=== PATIENT | female | born 1955 | race Hispanic/Latino ===

== ENCOUNTER 2019-08-06 02:09 | Inpatient (IN) | payer SELFPAY ==
[~2019-08-06] VITALS: Ht 157.5 cm; Wt 83.6 kg
[2019-08-06] MEDS ORDERED: ASPIRIN 81MG TAB.CHEW ONE (02:47)
[2019-08-06] MEDS ORDERED: SODIUM CHLORIDE 0.9% 1000ML 1,000 ML IV ONE (02:48)
[2019-08-06 03:02] LABS: BASOPHILS % (AUTO) 0.5 % (0.0-5.0); EOSINOPHILS % (AUTO) 2.6 % (0.0-8.0); HEMATOCRIT 40.4 % (36-48); LYMPHOCYTES % (AUTO) 30.6 % (21.0-51.0); MEAN CORPUSCULAR HEMOGLOBIN 30.5 pg (27.0-33.0); MEAN CORPUSCULAR HGB CONC 32.8 g/dL (32.0-36.0); MONOCYTES % (AUTO) 6.7 % (3.0-13.0); NEUTROPHILS % (AUTO) 59.6 % (40.0-77.0); PLATELET COUNT (AUTO) 214 K/uL (130-400); RED BLOOD CELL COUNT(AUTO) 4.35 MIL/uL (4.00-5.50); RED CELL DISTRIBUTION WIDTH 14.4 % (11.0-15.5); WHITE BLOOD COUNT (AUTO) 6.7 K/uL (4.8-10.8)
[2019-08-06 03:17] LABS: INR 0.93 (0.85-1.15); PARTIAL THROMBOPLASTIN TIME 34.3 SEC (26.3-35.5); PROTHROMBIN TIME 9.8 SEC (9.6-11.6)
[2019-08-06 03:23] LABS: B-TYPE NATRIURETIC PEPTIDE 8 pg/mL (0-100)
[2019-08-06 03:25] LABS: ALBUMIN 3.5 g/dL (3.5-5.0); BILIRUBIN,TOTAL 0.2 mg/dL (0.2-1.0); MAGNESIUM 1.9 mg/dL (1.80-2.40); THYROID STIMULATING HORMONE 2.52 uIU/mL (0.36-3.74); TOTAL PROTEIN, SERUM 7.7 g/dL (6.0-8.3)
[2019-08-06 04:39] LABS: APPEARANCE,URINE Clear (CLEAR); BILIRUBIN,URINE Negative (NEGATIVE); COLOR,URINE Yellow (YELLOW); GLUCOSE, URINE (UA) Negative (NEGATIVE); KETONES,URINE Negative (NEGATIVE); LEUKOCYTE ESTERASE ,URINE Trace (NEGATIVE); NITRATE,URINE Negative (NEGATIVE); OCCULT BLOOD,URINE Trace (NEGATIVE); PH,URINE 5.5 (5.0-8.0); PROTEIN,URINE Negative (NEGATIVE); UROBILINOGEN,URINE 0.2 mg/dL (0.2-1.0)
[2019-08-06 04:50] LABS: BACTERIA,URINE None Seen /HPF (None Seen); RBC,URINE 0-1 /HPF (0-1); SQUAMOUS EPITHELIAL CELL,UR Few /HPF (0-2); WBC,URINE None Seen /HPF (0-1)
[2019-08-06] MEDS ORDERED: MORPHINE SULFATE 2 MG/ML 1ML SYG IV PRN (05:00)
[2019-08-06] MEDS ORDERED: MORPHINE SULFATE 4 MG/1ML SYG IV PRN (05:00)
[2019-08-06] MEDS ORDERED: ACETAMINOPHEN 325 MG TAB PO PRN ×2 (05:00)
[2019-08-06] MEDS ORDERED: ONDANSETRON HCL 4 MG/2 ML VIAL IV PRN (05:00)
[2019-08-06 06:20] LABS: ALBUMIN 3.3 g/dL (3.5-5.0); BILIRUBIN,TOTAL 0.2 mg/dL (0.2-1.0); CREATININE 0.9 mg/dL (0.5-1.5); POTASSIUM 4.1 mmol/L (3.5-5.1); TOTAL PROTEIN, SERUM 7.3 g/dL (6.0-8.3)
[2019-08-06 06:27] LABS: CHOLESTEROL 179 mg/dL (<200); HDL CHOLESTEROL 61 mg/dL (35-85); LDL DIRECT 101 mg/dL (0-99); TRIGLYCERIDES 128 mg/dL (30-200)
[2019-08-06 08:23] VITALS: BP 133/73
[2019-08-06] MEDS: FAMOTIDINE/PF 20 MG/2 ML VIAL IV SCH ×2 (09:26→20:25)
[2019-08-06] MEDS: SODIUM CHLORIDE 0.9% 1000ML 1,000 ML IV SCH ×2 (09:26→23:48)
[2019-08-06] MEDS: METOPROLOL TARTRATE 25 MG TAB PO SCH ×2 (09:27→20:25)
[2019-08-06] MEDS: HEPARIN SODIUM 5000UNIT/ML 1ML VIAL SQ SCH ×2 (09:35→20:31)
[2019-08-06 11:43] VITALS: BP 135/71
--- NOTE | 2019-08-06 11:48 | NUR ---
PER DR. TRIANA CANCEL CARDIOLOGY CONSULT PT DENIES CHEST PAIN, COMPLAINTS ONLY OF LEFT HAND NUMBNESS.
--- NOTE | 2019-08-06 12:22 | NUR ---
DCP CM met with pt discussed dc plans. Pt is independent prior to admission, lives at home w/ spouse. Denies any equipments/services. Pt feels safe to go back home, still drives, spouse able to assist with transportation and needs as necessary. Pt is a self pay, HAC assisting, goes to [facility], given [email or web address] packet. DC plan to home once stable. CM to cont to follow up. Addendum: 08/06/19 at 1223 by PATI SPRINGER LVN CM Amended: Links added.
--- NOTE | 2019-08-06 16:20 | NUR ---
RD NOTIFICATION DX: CHEST PAIN. HX: DM, HTN, HYPERCHOLESTEROLEMIA, HYPERLIPIDEMIA. DIET: NPO. SKIN INTACT, NO EDEMA NOTED. LBM: 08/05. APPETITE IS GOOD PRIOR TO ADMISSION. NEVER BEEN EDUCATED IN THE PAST REGARDING DM AND HEART HEALTHY DIET EDUCATION. RD PROVIDED HEART HEALTHY AND DM DIET AND NUTRITION EDUCATION. PT ASKED QUESTIONS AND VERBALIZED UNDERSTANDING. RD RECOMMENDS TO ADVANCE DIET TOLERATED TO 75GMCCD, HEART HEALTHY. RD PROVIDED DM AND HEART HEALTHY DIET AND NUTRITION EDUCATION. RD WILL CONTINUE TO FOLLOW UP NEEDED. THANK YOU. Addendum: 08/06/19 at [address] RD Amended: Links added.
--- NOTE | 2019-08-06 16:21 | NUR ---
RD NOTIFICATION DX: CHEST PAIN. HX: DM, HTN, HYPERCHOLESTEROLEMIA, HYPERLIPIDEMIA. DIET: NPO. SKIN INTACT, NO EDEMA NOTED. LBM: 08/05. APPETITE IS GOOD PRIOR TO ADMISSION. NEVER BEEN EDUCATED IN THE PAST REGARDING DM AND HEART HEALTHY DIET EDUCATION. RD PROVIDED HEART HEALTHY AND DM DIET AND NUTRITION EDUCATION. PT ASKED QUESTIONS AND VERBALIZED UNDERSTANDING. RD RECOMMENDS TO ADVANCE DIET TOLERATED TO 75GMCCD, HEART HEALTHY. RD PROVIDED DM AND HEART HEALTHY DIET AND NUTRITION EDUCATION. RD WILL CONTINUE TO FOLLOW UP NEEDED. THANK YOU. Addendum: 08/06/19 at [address] RD Amended: Links added.
[2019-08-06 16:31] VITALS: BP 134/74
[2019-08-06] MEDS ORDERED: LISI-617 PO (19:08)
[2019-08-06] MEDS ORDERED: PRAV40TA3 PO (19:08)
[2019-08-06] MEDS ORDERED: METF-527 PO (19:08)
[2019-08-06 20:00] VITALS: BP 125/60
[2019-08-06] MEDS ORDERED: ATORVASTATIN CALCIUM 40 MG TABLET PO SCH (21:00)
[2019-08-07] VITALS: BP 126/62
[2019-08-07 04:00] VITALS: BP 114/61
[2019-08-07 04:16] LABS: BASOPHILS % (AUTO) 0.7 % (0.0-5.0); EOSINOPHILS % (AUTO) 3.2 % (0.0-8.0); HEMATOCRIT 37.6 % (36-48); LYMPHOCYTES % (AUTO) 41.5 % (21.0-51.0); MEAN CORPUSCULAR HGB CONC 33.5 g/dL (32.0-36.0); MEAN CORPUSCULAR VOLUME 92.3 fL (79-99); MONOCYTES % (AUTO) 7.6 % (3.0-13.0); PLATELET COUNT (AUTO) 216 K/uL (130-400); RED BLOOD CELL COUNT(AUTO) 4.08 MIL/uL (4.00-5.50); RED CELL DISTRIBUTION WIDTH 14.6 % (11.0-15.5); WHITE BLOOD COUNT (AUTO) 4.2 K/uL (4.8-10.8)
[2019-08-07 07:00] VITALS: BP 127/73
[2019-08-07] MEDS ORDERED: LISINOPRIL 5 MG TABLET PO SCH (09:00)
[2019-08-07] MEDS ORDERED: NON-FORMULARY MEDICATION 1 EACH (Pravastatin Sodium 40 MG) PO SCH (09:00)
[2019-08-07] MEDS: HEPARIN SODIUM 5000UNIT/ML 1ML VIAL SQ SCH (09:00)
[2019-08-07] MEDS: FAMOTIDINE/PF 20 MG/2 ML VIAL IV SCH (09:17)
[2019-08-07] MEDS: METOPROLOL TARTRATE 25 MG TAB PO SCH (09:17)
[2019-08-07 11:00] VITALS: BP 124/66
--- NOTE | 2019-08-07 11:37 | NUR ---
PT DISCHARGED HOME USING TEACH BACK TECHNIQUE RE; HOME MEDS, S/S TO WATCH FOR AND WHEN TO CALL 911 OR DOCTOR. FOLLOW UP WITH YOUR PRIMARY DOCTOR IN 1 WEEK. FOR POSSIBLE NEUROSURGERY CONSULT. KEEP USING SPLINT RECOMMENDED BY NEUROLOGIST. IF UNABLE TO TOLERATE PAIN CALL YOUR PRIMARY DOCTOR. IF FACIAL DROOP TO ONE SIDE OF FACE OR WEAKNESS TO ONE SIDE OF BODY CALL 911.
[2019-08-07] MEDS ORDERED: METFORMIN HCL 500 MG TAB.SR.24H PO SCH (17:00)
== END 2019-08-07 11:50 | disposition home or self-care (01) | DRG 313 ==
LOC: EDH 02:09 → OBSVTOIN 02:10 → EDHIP 02:10 → 3AH 08:06
PROVIDERS: ADMIT Internal Medicine; ATTEND Internal Medicine
DX: R07.89 Other chest pain (principal); M54.12 Radiculopathy, cervical region; E03.9 Hypothyroidism, unspecified; E11.9 Type 2 diabetes mellitus without complications; E78.00 Pure hypercholesterolemia, unspecified; I10 Essential (primary) hypertension; Z90.711 Acquired absence of uterus with remaining cervical stump; E78.5 Hyperlipidemia, unspecified
CPT/HCPCS: 36415; 70450; 71045; 72141; 80053; 80061; 81001; 82550; 82948; 83605; 83690; 83735; 83880; 84443; 84484; 85025; 85610; 85730; 93005; 93306; G0378; J1644; J3490; J7030

== ENCOUNTER 2024-09-06 01:12 | Emergency (ER) | payer OTHER, SELFPAY ==
[~2024-09-06] VITALS: Ht 154.9 cm; Wt 80.8 kg
[~2024-09-06 01:12] MED LIST: LISI5TAB21 PO; METF-527 PO; PRAV40TA3 PO
[2024-09-06 01:52] VITALS: BP 130/67; PULSE 74; RESP 20; TEMP 98.6; O2SAT 100
[2024-09-07] MEDS ORDERED: PRED10TA23 PO (09:02)
== END 2024-09-06 01:58 | disposition home or self-care (01) ==
LOC: EDH 01:12
DX: L03.115 Cellulitis of right lower limb (principal); E11.9 Type 2 diabetes mellitus without complications; Z79.2 Long term (current) use of antibiotics; Z79.84 Long term (current) use of oral hypoglycemic drugs; Z79.899 Other long term (current) drug therapy
CPT/HCPCS: 99282

== ENCOUNTER 2024-09-07 06:38 | Emergency (ER) | payer OTHER ==
[~2024-09-07] VITALS: Ht 157.5 cm; Wt 77.1 kg
[2024-09-07] MEDS: morPHINE 2 MG SYG IVP ONE (07:17)
[2024-09-07] MEDS: DiphenhydrAMINE HCL 50 MG/ML VIAL IV ONE (07:18)
[2024-09-07] MEDS: LACTATED RINGERS 1000ML 1,000 ML IV ONE (07:18)
[2024-09-07] MEDS: CLINDAMYCIN IVPB 300MG/50ML 50 ML IV SCH (07:18)
--- NOTE | 2024-09-07 07:52 | ERN ---
General Chief Complaint: Cellulitis Stated Complaint: REDNESS TO RT LEG AND LOWER LEFT ABD Time Seen by MD: 06:41 History of Present Illness Initial Comments Mrs Patel is a 68 year old female who comes in today with a chief complaint of suspected cellulitis. Patient reports that she had previously been treated with antibiotics for colitis. She states that she has large right thigh swelling. She also developed a left-sided area of redness in the left lower quadrant. Patient denies any other symptoms. Allergies: Coded Allergies: No Known Drug Allergies (Verified Allergy, Unknown, 08/06/19) Home Meds Reported Medications Lisinopril (Lisinopril) 5 Mg Tablet, 5 MG PO DAILY, TAB 08/06/19 Pravastatin Sodium (Pravastatin Sodium) 40 Mg Tablet, 40 MG PO DAILY, TAB 08/06/19 Metformin HCl (Metformin HCl ER) 1,000 Mg Tab.er.24, 1000 MG PO BID 08/06/19 Past Medical History Past Medical History: Diabetes-Type II Past Surgical History: Other Surgical History Other: LEFT BREAST LUMPECTOMY ROS Dictation Constitutional: Negative for fever,chills, and weight loss Eyes: Negative for injury, pain,redness, and discharge ENT: Negative for injury,pain or swelling Cardiovascular: Negative for chest pain, palpitations, and edema Respiratory: Negative for shortness of breath, cough, and wheezing, Abdomen/GI: Negative for abdominal pain, nausea, vomiting, diarrhea, and constipation Back: Negative for injury and pain : Negative for injury, bleeding and discharge MS/Extremity: Negative for injury and deformity Skin: Positive for discoloration of the right leg Neuro: Negative for headache, weakness, numbness, tingling, and seizure Psych: Negative for suicide ideation, homicidal ideation, and hallucinations Physical Exam Physical Exam Dictation General: awake, alert, NAD Head/Face: Normocephalic, atraumatic Eyes: PERRL, EOMI, vision at baseline ENT: oral cavity clear, Neck: Trachea midline, supple, Cardiovascular: RRR, normal S1/S2 Respiratory: CTAB, no respiratory distres Abdomen: Soft, non-tender, non-distended Skin: Circular Redness over right inner thigh and redness over left lower quadrant MS/Extremity: Pulses equal, no cyanosis Neuro: COAx4, GCS 15, strength 5/5, CN 2-12 intact, Psych: Normal behavior, mood, and affect normal Results Laboratory and Microbiology Lab and Micro Result Laboratory Tests Test 09/07/24 07:53 White Blood Count 5.0 K/uL (4.8-10.8) Red Blood Count 4.13 MIL/uL (4.00-5.50) Hemoglobin 12.5 g/dL (12.0-16.0) Hematocrit 38.5 % (36-48) Mean Corpuscular Volume 93.2 fL (79-99) Mean Corpuscular Hemoglobin 30.3 pg (27.0-33.0) Mean Corpuscular Hemoglobin Concent 32.5 g/dL (32.0-36.0) Red Cell Distribution Width 13.4 % (11.0-15.5) Platelet Count 219 K/uL (130-400) Mean Platelet Volume 9.8 fL (7.5-10.5) Immature Granulocyte % (Auto) 0.2 % (0-1) Neutrophils (%) (Auto) 69.9 % (40.0-77.0) Lymphocytes (%) (Auto) 20.7 % (21.0-51.0) L Monocytes (%) (Auto) 7.4 % (3.0-13.0) Eosinophils (%) (Auto) 1.6 % (0.0-8.0) Basophils (%) (Auto) 0.2 % (0.0-5.0) Neutrophils # (Auto) 3.5 K/uL (1.8-7.7) Lymphocytes # (Auto) 1.0 K/uL (1.0-4.8) Monocytes # (Auto) 0.4 K/uL (0.1-1.0) Eosinophils # (Auto) 0.08 K/uL (0.00-0.70) Basophils # (Auto) 0.01 K/uL (0.00-0.20) Absolute Immature Granulocyte (auto 0.01 K/uL (0-1) Nucleated Red Blood Cells 0.0 % (0.0-0.19) Sodium Level 137 mmol/L (136-145) Potassium Level 3.7 mmol/L (3.5-5.1) Chloride Level 103 mmol/L (101-111) Carbon Dioxide Level 24 mmol/L (21-32) Blood Urea Nitrogen 15 mg/dL (7-18) Creatinine 1.2 mg/dL (0.5-1.0) H Glomerular Filtration Rate Calc 50 mL/min (>90) Random Glucose 163 mg/dL (70-105) H Total Calcium 9.0 mg/dL (8.5-10.1) Total Bilirubin 0.3 mg/dL (0.2-1.0) Aspartate Amino Transf (AST/SGOT) 17 U/L (10-37) Alanine Aminotransferase (ALT/SGPT) 21 U/L (12-78) Alkaline Phosphatase 87 U/L (50-136) Total Protein 7.6 g/dL (6.0-8.3) Albumin 3.4 g/dL (3.5-5.0) L Labs Reviewed?: Yes MDM MDM: Differential diagnosis: Panniculitis, erythema nodosum, cellulitis Patient is a 68-year-old female coming in to be evaluated for possible cellulitis. Patient does have red nodules right lower extremity and upper left abdominal region. Laboratory workup negative for acute findings. Patient states he gets these on and off for some time. I advised her appropriate follow up with PCP and or phys therapist to continue evaluating lesions. Patient will be referred to the local phys therapist we will be discharging her with oral steroids. ED Course Orders Procedure Category Date Status Time Cbc With Differential LAB 09/07/24 Complete 06:56 Comprehensive LAB 09/07/24 Complete Metabolic Panel 06:56 Lactated Ringers PHA 09/07/24 Complete 1000ml (Lactated 07:00 Morphine 2mg Syg PHA 09/07/24 Complete (Morphine 2mg Syg) 07:00 Diphenhydramine Hcl PHA 09/07/24 Complete (Benadryl Inj) 07:00 Clindamycin Ivpb PHA 09/07/24 In Process 300mg/50ml (Cleocin 07:00 Current Medications Medications (Trade) Dose Ordered Sig/Jolynn Route PRN Reason Start Time Stop Time Status Last Admin Dose Admin Clindamycin HCl/ Dextrose 50 ml @ 100 mls/hr Q8H IV 09/07/24 07:00 09/17/24 06:59 09/07/24 07:18 Diphenhydramine HCl (BENAdryl INJ) 25 mg ONCE ONCE IV 09/07/24 07:00 09/07/24 07:01 DC 09/07/24 07:18 Lactated Ringer's 1,000 ml @ 0 mls/hr ONCE ONCE IV 09/07/24 07:00 09/07/24 07:01 DC 09/07/24 07:18 Morphine Sulfate (morPHINE 2MG SYG) 2 mg ONCE ONCE IVP 09/07/24 07:00 09/07/24 07:01 DC 09/07/24 07:17 Vital Signs Date Time Temp Pulse Resp B/P (MAP) Pulse Ox O2 Delivery O2 Flow Rate FiO2 09/07/24 06:39 97.3 79 18 134/58 99 Room Air DX & DISP Disposition: Discharge Departure Impression: Primary Impression: Panniculitis Additional Impression: Erythema nodosum Condition: Stable Scripts Prednisone (Prednisone) 10 Mg Tab.ds.pk 1 TAB PO DAILY for 5 Days, #21 TAB 0 Refills Prov: DI MOSLEY MD 09/07/24 Additional Instructions: FOLLOW-UP WITH PRIMARY CARE PROVIDER IN 1 TO 2 DAYS. TAKE MEDICATIONS DIRECTED HERE IN THE EMERGENCY ROOM. OKAY TO CONTINUE HOME MEDICATIONS UNLESS OTHERWISE DISCUSSED DURING YOUR VISIT IN THE EMERGENCY ROOM TODAY. RETURN TO YOUR NEAREST EMERGENCY ROOM IF SYMPTOMS WORSEN OR IF THERE IS NO IMPROVEMENT. CALL 911 IF YOU NEED IMMEDIATE ASSISTANCE. TAKE TYLENOL [id number] NEEDED AND IF NO CONTRAINDICATIONS ARE PRESENT. INCREASE ORAL HYDRATION. A WOUND CULTURE OR URINE CULTURE WAS ORDERED HERE IN THE EMERGENCY ROOM DEPARTMENT PLEASE FOLLOW-UP WITH PRIMARY CARE PROVIDER AND ADVISE THEM TO GET REPEAT PORTS FROM OUR FACILITY. IF YOU HAD ANY ISELA WRAP/SPLINTS THAT WERE APPLIED HERE, PLEASE DO NOT REMOVE THEM UNTIL YOU SEE YOUR PRIMARY CARE OR SPECIALTY. Referrals: Referrals: BETO WILLS MD (PCP) DONNIE SANTOS MD Time of Disposition: 09:01 CHERRIE ALVARES MD Sep 07, 2024 07:52 DI MOSLEY MD Sep 07, 2024 09:03
[2024-09-07 08:08] LABS: BASOPHILS # (AUTO) 0.01 K/uL (0.00-0.20); BASOPHILS % (AUTO) 0.2 % (0.0-5.0); EOSINOPHILS # (AUTO) 0.08 K/uL (0.00-0.70); EOSINOPHILS % (AUTO) 1.6 % (0.0-8.0); HEMATOCRIT 38.5 % (36-48); IMMATURE GRANULOCYTE ABSOLUTE 0.01 K/uL (0-1); LYMPHOCYTES % (AUTO) 20.7 % (21.0-51.0); MEAN CORPUSCULAR HEMOGLOBIN 30.3 pg (27.0-33.0); MEAN CORPUSCULAR HGB CONC 32.5 g/dL (32.0-36.0); MEAN CORPUSCULAR VOLUME 93.2 fL (79-99); MONOCYTES # (AUTO) 0.4 K/uL (0.1-1.0); MONOCYTES % (AUTO) 7.4 % (3.0-13.0); NEUTROPHILS # (AUTO) 3.5 K/uL (1.8-7.7); NEUTROPHILS % (AUTO) 69.9 % (40.0-77.0); PLATELET COUNT (AUTO) 219 K/uL (130-400); RED BLOOD CELL COUNT(AUTO) 4.13 MIL/uL (4.00-5.50); RED CELL DISTRIBUTION WIDTH 13.4 % (11.0-15.5)
[2024-09-07 08:18] LABS: CREATININE 1.2 mg/dL (0.5-1.0); POTASSIUM 3.7 mmol/L (3.5-5.1)
[2024-09-07 08:23] LABS: ALBUMIN 3.4 g/dL (3.5-5.0); BILIRUBIN,TOTAL 0.3 mg/dL (0.2-1.0); TOTAL PROTEIN, SERUM 7.6 g/dL (6.0-8.3)
[2024-09-07] MEDS ORDERED: PRED10TA23 PO (09:02)
[2024-09-07 09:57] VITALS: BP 134/64; PULSE 80; RESP 16; TEMP 98.1; O2SAT 99
[2024-09-07 10:21] LABS: APPEARANCE,URINE CLEAR (CLEAR); BILIRUBIN,URINE NEGATIVE (NEGATIVE); COLOR,URINE COLORLESS (YELLOW); GLUCOSE, URINE (UA) NEGATIVE (NEGATIVE); KETONES,URINE NEGATIVE (NEGATIVE); LEUKOCYTE ESTERASE ,URINE 75 Leu/uL (NEGATIVE); NITRATE,URINE NEGATIVE (NEGATIVE); OCCULT BLOOD,URINE NEGATIVE (NEGATIVE); PROTEIN,URINE NEGATIVE (NEGATIVE); UROBILINOGEN,URINE 0.2 mg/dL (0.2-1.0)
[2024-09-07 10:42] LABS: ADD UA MICROSCOPIC YES
[2024-09-07 10:56] LABS: MUCUS,URINE RARE LPF (None Seen); RBC,URINE 0-1 /HPF (0-1); SQUAMOUS EPITHELIAL CELL,UR FEW /HPF (0-2); TRANSITIONAL EPI CELLS,URINE RARE /HPF (None Seen)
== END 2024-09-07 09:45 | disposition home or self-care (01) ==
LOC: EDH 06:38
DX: M79.3 Panniculitis, unspecified (principal); L52 Erythema nodosum; E11.9 Type 2 diabetes mellitus without complications; Z79.84 Long term (current) use of oral hypoglycemic drugs; Z79.899 Other long term (current) drug therapy; Z98.890 Other specified postprocedural states
CPT/HCPCS: 99284; 96365; 96375; 80053; 85025; 87086; 81001; 36415; J7120; J1200; J2270; J3490